=== PATIENT | female | born 1955 | race Caucasian/White ===

== ENCOUNTER 2017-02-11 00:58 | Emergency (ER) | payer BC ==
[~2017-02-11] VITALS: Ht 160 cm; Wt 60.0 kg
[2017-02-11 01:03] VITALS: BP 141/91; PULSE 98; RESP 16; TEMP 99.2; O2SAT 97
[2017-02-11 03:39] VITALS: BP 139/61; PULSE 93; RESP 20; O2SAT 99
[2017-02-11] MEDS ORDERED: SODIUM CHLOR 0.9% 1000 ML INJ 1,000 ML IV ONE (03:45)
[2017-02-11] MEDS ORDERED: KETOROLAC TROMETHAMINE 30 MG/ML (IVP) VIAL IV PUSH ONE (03:45)
--- NOTE | 2017-02-11 03:45 | PD ---
HPI Chief Complaint: Flank/Kidney Pain Time Seen by Provider: 03:32 Travel History International Travel<30 days: No Contact w/Intl Traveler<30days: No Traveled to known affect area: No History of Present Illness HPI 61yo F presents to the ED with c/o dysuria and pressure during urination for 1 week. States today the pain radiated up to left flank. Had nausea earlier but it resolved. Denies any fever, chest pain, sob, vomiting, vaginal bleeding or discharge. Pt had hysterectomy for uterine cancer when she was 38. PFSH Past Medical History Medical History: Denies Significant Hx Diminished Hearing: No Tetanus Vaccination: Unknown Influenza Vaccination: No Past Surgical History Hysterectomy: Yes Social History Alcohol Use: Yes (OCC) Tobacco Use: No Substance Use: No Allergies-Medications (Allergen,Severity, Reaction): Coded Allergies: Codeine (Verified Allergy, Severe, Headache, 02/11/17) Doxycycline (Verified Allergy, Severe, Nausea/Vomiting, 02/11/17) Reported Meds & Prescriptions Reported Meds & Active Scripts Active No Active Prescriptions or Reported Medications Review of Systems Except as stated in HPI: all other systems reviewed are Neg Physical Exam Narrative GENERAL: 61yo F not in distress. SKIN: Focused skin assessment warm/dry. HEAD: Atraumatic. Normocephalic. EYES: Pupils equal and round. No scleral icterus. No injection or drainage. ENT: No nasal bleeding or discharge. Mucous membranes pink and moist. NECK: Trachea midline. No JVD. CARDIOVASCULAR: Regular rate and rhythm. No murmur appreciated. RESPIRATORY: No accessory muscle use. Clear to auscultation. Breath sounds equal bilaterally. GASTROINTESTINAL: Abdomen soft, +TTP suprapubic region. No rebound tenderness or guarding. MUSCULOSKELETAL: No obvious deformities. No clubbing. No cyanosis. No edema. NEUROLOGICAL: Awake and alert. No obvious cranial nerve deficits. Motor grossly within normal limits. Normal speech. PSYCHIATRIC: Appropriate mood and affect; insight and judgment normal. Data Data Last Documented VS Vital Signs Date Time Temp Pulse Resp B/P Pulse Ox O2 Delivery O2 Flow Rate FiO2 02/11/17 03:49 80 16 99 Room Air 02/11/17 03:39 139/61 02/11/17 01:03 99.2 Orders Urinalysis - C+S If Indicated (02/11/17 01:29) Complete Blood Count With Diff (02/11/17 03:39) Basic Metabolic Panel (Bmp) (02/11/17 03:39) Ct Abd/Pel W/O Iv Contrast (02/11/17 ) Ketorolac Inj (Toradol Inj) (02/11/17 03:45) Sodium Chlor 0.9% 1000 Ml Inj (Ns 1000 M (02/11/17 03:45) Urine Culture (02/11/17 03:30) Ceftriaxone Inj (Rocephin Inj) (02/11/17 06:00) Labs Laboratory Tests Test 02/11/17 02/11/17 03:30 03:45 Urine Color YELLOW Urine Turbidity HAZY Urine pH 5.5 Urine Specific [place] 1.015 Urine Protein 30 mg/dL Urine Glucose (UA) NEG mg/dL Urine Ketones NEG mg/dL Urine Occult Blood LARGE Urine Nitrite NEG Urine Bilirubin NEG Urine Urobilinogen LESS THAN 2.0 MG/DL Urine Leukocyte Esterase LARGE Urine RBC /hpf Urine WBC /hpf Urine Squamous Epithelial 1 /hpf Cells Urine Mucus FEW /lpf Microscopic Urinalysis Comment CULTURE INDICATED White Blood Count 12.3 TH/MM3 Red Blood Count 5.13 MIL/MM3 Hemoglobin 14.1 GM/DL Hematocrit 42.8 % Mean Corpuscular Volume 83.4 FL Mean Corpuscular Hemoglobin 27.5 PG Mean Corpuscular Hemoglobin 33.0 % Concent Red Cell Distribution Width 13.7 % Platelet Count 229 TH/MM3 Mean Platelet Volume 8.1 FL Neutrophils (%) (Auto) 82.9 % Lymphocytes (%) (Auto) 10.4 % Monocytes (%) (Auto) 6.0 % Eosinophils (%) (Auto) 0.5 % Basophils (%) (Auto) 0.2 % Neutrophils # (Auto) 10.2 TH/MM3 Lymphocytes # (Auto) 1.3 TH/MM3 Monocytes # (Auto) 0.7 TH/MM3 Eosinophils # (Auto) 0.1 TH/MM3 Basophils # (Auto) 0.0 TH/MM3 CBC Comment DIFF FINAL Differential Comment Sodium Level 140 MEQ/L Potassium Level 3.7 MEQ/L Chloride Level 105 MEQ/L Carbon Dioxide Level 27.0 MEQ/L Anion Gap 8 MEQ/L Blood Urea Nitrogen 10 MG/DL Creatinine 0.67 MG/DL Estimat Glomerular Filtration 89 ML/MIN Rate Random Glucose 123 MG/DL Calcium Level 9.5 MG/DL MDM Medical Decision Making Medical Screen Exam Complete: Yes Emergency Medical Condition: Yes Interpretation(s) Laboratory Tests Test 02/11/17 02/11/17 03:30 03:45 Urine Color YELLOW (YELLW/STRAW) Urine Turbidity HAZY (CLEAR) Urine pH 5.5 (5.0-8.5) Urine Specific [place] 1.015 (1.002-1.035) Urine Protein 30 mg/dL (NEG-TRACE) Urine Glucose (UA) NEG mg/dL (NEG) Urine Ketones NEG mg/dL (NEG) Urine Occult Blood LARGE (NEG) Urine Nitrite NEG (NEG) Urine Bilirubin NEG (NEG) Urine Urobilinogen LESS THAN 2.0 MG/DL (LESS THAN 2.0) Urine Leukocyte Esterase LARGE (NEG) Urine RBC /hpf (0-3) Urine WBC /hpf (0-5) Urine Squamous Epithelial 1 /hpf (0-5) Cells Urine Mucus FEW /lpf (OCC) Microscopic Urinalysis Comment CULTURE INDICATED White Blood Count 12.3 TH/MM3 (4.0-11.0) Red Blood Count 5.13 MIL/MM3 (4.00-5.30) Hemoglobin 14.1 GM/DL (11.6-15.3) Hematocrit 42.8 % (35.0-46.0) Mean Corpuscular Volume 83.4 FL (80.0-100.0) Mean Corpuscular Hemoglobin 27.5 PG (27.0-34.0) Mean Corpuscular Hemoglobin 33.0 % Concent (32.0-36.0) Red Cell Distribution Width 13.7 % (11.6-17.2) Platelet Count 229 TH/MM3 (150-450) Mean Platelet Volume 8.1 FL (7.0-11.0) Neutrophils (%) (Auto) 82.9 % (16.0-70.0) Lymphocytes (%) (Auto) 10.4 % (9.0-44.0) Monocytes (%) (Auto) 6.0 % (0.0-8.0) Eosinophils (%) (Auto) 0.5 % (0.0-4.0) Basophils (%) (Auto) 0.2 % (0.0-2.0) Neutrophils # (Auto) 10.2 TH/MM3 (1.8-7.7) Lymphocytes # (Auto) 1.3 TH/MM3 (1.0-4.8) Monocytes # (Auto) 0.7 TH/MM3 (0-0.9) Eosinophils # (Auto) 0.1 TH/MM3 (0-0.4) Basophils # (Auto) 0.0 TH/MM3 (0-0.2) CBC Comment DIFF FINAL Differential Comment Sodium Level 140 MEQ/L (136-145) Potassium Level 3.7 MEQ/L (3.5-5.1) Chloride Level 105 MEQ/L (98-107) Carbon Dioxide Level 27.0 MEQ/L (21.0-32.0) Anion Gap 8 MEQ/L (5-15) Blood Urea Nitrogen 10 MG/DL (7-18) Creatinine 0.67 MG/DL (0.50-1.00) Estimat Glomerular Filtration 89 ML/MIN (>89) Rate Random Glucose 123 MG/DL (74-106) Calcium Level 9.5 MG/DL (8.5-10.1) Last Impressions Abdomen/Pelvis CT 02/11/17 0000 Signed Impressions: Service Date/Time: Monday, February 11, 2017 04:16 - CONCLUSION: 1. No stones or evidence of obstructive uropathy but there is mild perinephric and periureteral stranding and also mild wall thickening of the urinary bladder. Please correlate with any clinical and/or laboratory evidence of cystitis or pyelonephritis. 2. Nonspecific hepatomegaly. 3. Lumbar spine degenerative changes. Vadim Romero MD Differential Diagnosis Pyelonephritis vs. nephrolithiasis vs. musculoskeletal pain. Narrative Course 61yo F urinary complaints and now left flank pain. Labs reviewed, mild leukocytosis at 12.3. Glucose 123. BUN/creatinine normal. UA showed large leukocyte. CTa/p showed no stones or evidence of obstructive uropathy but there is mild perinephric and periureteral stranding. This is consistent with pyelonephritis. Pt reevaluated at bedside and feels better after toradl. Pt not nauseous and tolerating PO. Given ceftriaxone 1gm IV. Return precautions given. Diagnosis Primary Impression: Pyelonephritis Patient Instructions: General Instructions Departure Forms: Tests/Procedures Additional Instructions: Please follow up with your PMD in 3-7 days. Return to the ED if symptoms worsen. Med/Other Pt SpecificInfo: Prescription(s) given Scripts Cephalexin (Keflex)500 Mg [id number] Mg PO Q12H 10 Days Ref 0 Prov:Elvira Gonzales DO 02/11/17 Disposition: 01 DISCHARGE HOME Condition: Stable Elvira Gonzales DO Feb 11, 2017 03:45
[2017-02-11 03:49] VITALS: PULSE 80; RESP 16; O2SAT 99
[2017-02-11 03:59] LABS: AUTOMATED NEUTROPHIL # 10.2 TH/MM3 (1.8-7.7); BASOPHIL % 0.2 % (0.0-2.0); EOSINOPHIL # 0.1 TH/MM3 (0-0.4); EOSINOPHIL % 0.5 % (0.0-4.0); HEMATOCRIT 42.8 % (35.0-46.0); HEMO FLAGS DIFF FINAL; LYMPH % 10.4 % (9.0-44.0); LYMPHOCYTE # 1.3 TH/MM3 (1.0-4.8); MEAN CELL VOLUME 83.4 FL (80.0-100.0); MEAN CORPUSCULAR HEMOGLOBIN 27.5 PG (27.0-34.0); NEUT % 82.9 % (16.0-70.0); PLATELET COUNT 229 TH/MM3 (150-450); RED BLOOD COUNT 5.13 MIL/MM3 (4.00-5.30); RED CELL DISTRIBUTION WIDTH 13.7 % (11.6-17.2); WHITE BLOOD COUNT 12.3 TH/MM3 (4.0-11.0)
[2017-02-11 04:24] LABS: POTASSIUM 3.7 MEQ/L (3.5-5.1)
[2017-02-11 04:35] LABS: BLOOD, URINE LARGE (NEG); COMMENT (UR) CULTURE INDICATED; CULTURE IF INDICATED CULTURE INDICATED; GLUCOSE,URINE NEG (NEG); KETONE, URINE NEG (NEG); MUCUS URINE FEW /lpf (OCC); NITRITE,URINE NEG (NEG); PH, URINE 5.5 (5.0-8.5); SQUAMOUS EPITHELIAL CELL URINE 1 /hpf (0-5); URINE COLOR YELLOW (YELLW/STRAW)
--- NOTE | 2017-02-11 04:41 | RADRPT ---
EXAM DATE/TIME: 02/11/2017 04:16 [facility] COMPARISON: No previous studies available for comparison. INDICATIONS : Bilateral flank pain. ORAL CONTRAST: No oral contrast ingested. RADIATION DOSE: 13.28 CTDIvol (mGy) MEDICAL HISTORY : None SURGICAL HISTORY : Hysterectomy. ENCOUNTER: Initial ACUITY: 2 days PAIN SCALE: 8/10 LOCATION: Bilateral flank TECHNIQUE: Volumetric scanning of the abdomen and pelvis was performed. Using automated exposure control and ad justment of the mA and/or kV according to patient size, radiation dose was kept as low as reasonably achievable to obtain optimal diagnostic quality images. FINDINGS: LOWER LUNGS: The visualized lower lungs are clear. LIVER: Liver is mildly enlarged at around 20 cm craniocaudal. No focal hepatic lesion. The CT appearance of the gallbladder within normal limits. SPLEEN: Normal size without lesion. PANCREAS: Within normal limits. KIDNEYS: No stones are seen. Mild stranding seen around both kidneys and ureteropelvic junction regions. No si gnificant dilatation demonstrated. There is mild wall thickening of the urinary bladder without perce ptible mass. ADRENAL GLANDS: Within normal limits. VASCULAR: There is no aortic aneurysm. BOWEL/MESENTERY: The stomach, small bowel, and colon demonstrate no acute abnormality. There is no free intraperitone al air or fluid. The appendix is well-visualized, normal. ABDOMINAL WALL: Within normal limits. RETROPERITONEUM: There is no lymphadenopathy. BLADDER: No wall thickening or mass. REPRODUCTIVE: Within normal limits. INGUINAL: There is no lymphadenopathy or hernia. MUSCULOSKELETAL: No acute bony abnormality demonstrated. Mild dextroconvex curvature and multilevel degenerative disc disease seen of the lumbar spine. CONCLUSION: 1. No stones or evidence of obstructive uropathy but there is mild perinephric and periureteral stran ding and also mild wall thickening of the urinary bladder. Please correlate with any clinical and/or laboratory evidence of cystitis or pyelonephritis. 2. Nonspecific hepatomegaly. 3. Lumbar spine degenerative changes. Vadim Romero MD on February 11, 2017 at 4:35 Board Certified Radiologist. This report was verified electronically.
[2017-02-11] MEDS ORDERED: cefTRIAXone INJ 1,000 MG in SODIUM CHLORIDE 0.9% INJ 100 ML IV ONE (06:00)
[2017-02-11] MEDS ORDERED: CEPH-460 PO (06:08)
== END 2017-02-11 06:25 | disposition home or self-care (01) ==
LOC: NEPC 00:58
DX: N12 Tubulo-interstitial nephritis, not specified as acute or chronic (principal); B96.20 Unspecified Escherichia coli [E. coli] as the cause of diseases classified elsewhere; R10.9 Unspecified abdominal pain; R11.0 Nausea
CPT/HCPCS: 74176; 80048; 81001; 85025; 87077; 87086; 87186; 96361; 96365; 96375; 99284; J0696; J1885; J7030